=== PATIENT | female | born 1940 | race Caucasian/White ===

== ENCOUNTER → 2019-05-05 | Outpatient (CLI) | payer MEDICARE ==
--- NOTE | 2019-05-05 12:38 | REP ---
Chest two views HISTORY: Cough Parenchymal densities are present in the right lower lobe consistent with atelectasis or infiltrate. The left lung is clear. The heart is normal in size. The pulmonary vasculature is normal in appearance. The bony structure is intact. IMPRESSION: Right lower lobe atelectasis or infiltrate. Electronically Signed by Giovanni Clayton MD 05/05/2019 12:30 P
== END ==
LOC: M SMT 11:43
PROVIDERS: ATTEND Internal Medicine Pulmonary Disease
DX: R91.8 Other nonspecific abnormal finding of lung field (principal)

== ENCOUNTER → 2019-05-26 | Outpatient (REF) | payer MEDICARE | LOC: M LAB REF 12:57 | PROVIDERS: ATTEND Internal Medicine Pulmonary Disease | DX: R05 Cough (principal) ==

== ENCOUNTER → 2022-09-10 | Outpatient (REF) | payer MEDICARE ==
[2022-09-10 18:31] LABS: BASO # 0.2 10^3/uL (0.0-0.2); BASO % 1.5 % (0.0-1.0); EOS # 1.3 10^3/uL (0.0-0.5); EOS % 11.9 % (0.0-3.0); HEMATOCRIT 48.4 % (36.0-47.0); HEMOGLOBIN 15.7 g/dl (12.0-15.5); LYMPH # 2.4 10^3/uL (1.5-5.0); LYMPH % 21.6 % (24.0-44.0); MEAN CORPUSCULAR HEMOGLOBIN 30.8 pg (27.0-33.0); MEAN CORPUSCULAR HGB CONC 32.4 g/dl (32.0-36.5); MEAN CORPUSCULAR VOLUME 95.1 fl (80.0-96.0); MONO # 1.3 10^3/uL (0.0-0.8); MONO % 11.6 % (2.0-8.0); NEUTROPHILS # 5.9 10^3/uL (1.5-8.5); NEUTROPHILS % 53.2 % (36.0-66.0); PLATELET COUNT, AUTOMATED 373 10^3/uL (150-450); RED BLOOD COUNT 5.09 10^6/uL (4.00-5.40)
[2022-09-23 15:07] LABS: D001-IgE D pteronyssinus <0.10 kU/L (Class 0); E001-IgE Cat Epith/Dander < 0.10 kU/L (Class 0); E005-IgE Dog Dander < 0.10 kU/L (Class 0); G002-IgE Bermuda Grass < 0.10 kU/L (Class 0); M002 IgE Cladosporium herbaru < 0.10 kU/L (Class 0); M006-IgE Alternaria alternata < 0.10 kU/L (Class 0); W001-IgE Ragweed, Short < 0.10 kU/L (Class 0)
== END ==
LOC: M LAB 14:11 → M LAB REF 14:11 → M LAB 17:29
PROVIDERS: ATTEND Nurse Practitioner Family
DX: J45.40 Moderate persistent asthma, uncomplicated (principal)

== ENCOUNTER → 2022-09-26 | Outpatient (REF) | payer MEDICARE | LOC: M LAB REF 10:03 | PROVIDERS: ATTEND Nurse Practitioner Family | DX: J45.40 Moderate persistent asthma, uncomplicated (principal) ==

== ENCOUNTER → 2022-10-15 | Outpatient (REF) | payer MEDICARE ==
[2022-10-15 18:36] LABS: BASO # 0.2 10^3/uL (0.0-0.2); BASO % 0.9 % (0.0-1.0); EOS # 0.7 10^3/uL (0.0-0.5); EOS % 4.3 % (0.0-3.0); HEMOGLOBIN 15.5 g/dl (12.0-15.5); LYMPH # 3.2 10^3/uL (1.5-5.0); LYMPH % 18.2 % (24.0-44.0); MEAN CORPUSCULAR HEMOGLOBIN 30.9 pg (27.0-33.0); MEAN CORPUSCULAR HGB CONC 32.3 g/dl (32.0-36.5); MEAN CORPUSCULAR VOLUME 95.6 fl (80.0-96.0); MONO % 13.3 % (2.0-8.0); NEUTROPHILS # 10.9 10^3/uL (1.5-8.5); NEUTROPHILS % 62.9 % (36.0-66.0); PLATELET COUNT, AUTOMATED 429 10^3/uL (150-450); RED BLOOD COUNT 5.02 10^6/uL (4.00-5.40); WHITE BLOOD COUNT 17.3 10^3/uL (4.0-10.0)
[2022-10-15 19:40] LABS: MONO # 2.3 10^3/uL (0.0-0.8)
== END ==
LOC: M LAB REF 17:06
PROVIDERS: ATTEND Nurse Practitioner Family
DX: J45.41 Moderate persistent asthma with (acute) exacerbation (principal)

== ENCOUNTER 2024-09-21 15:27 | Observation (INO) | payer MEDICARE ==
[~2024-09-21] VITALS: Ht 157.5 cm; Wt 90.0 kg
[~2024-09-21 15:27] MED LIST changes: -AZEL1SPR3 NARES; -ELIQ5TAB PO; -IBUP200C25 PO; -LANO125T4 PO; -METO1TAB87 PO
[2024-09-21] MEDS: METOPROLOL TART 25 MG TABLET PO ONE (16:02)
[2024-09-21] MEDS: METOPROLOL 5 MG/5 ML VIAL IV SCH (16:02)
[2024-09-21 16:12] LABS: BASO # 0.2 10^3/uL (0.0-0.2); BASO % 1.5 % (0.0-1.0); EOS # 1.1 10^3/uL (0.0-0.5); EOS % 9.7 % (0.0-3.0); HEMATOCRIT 49.1 % (36.0-47.0); HEMOGLOBIN 16.4 g/dl (12.0-15.5); LYMPH # 3.4 10^3/uL (1.5-5.0); LYMPH % 29.3 % (24.0-44.0); MEAN CORPUSCULAR HEMOGLOBIN 31.1 pg (27.0-33.0); MEAN CORPUSCULAR HGB CONC 33.4 g/dl (32.0-36.5); MEAN CORPUSCULAR VOLUME 93.2 fl (80.0-96.0); MONO # 1.4 10^3/uL (0.0-0.8); MONO % 12.3 % (2.0-8.0); NEUTROPHILS # 5.4 10^3/uL (1.5-8.5); NEUTROPHILS % 46.9 % (36.0-66.0); PLATELET COUNT, AUTOMATED 429 10^3/uL (150-450); RED BLOOD COUNT 5.27 10^6/uL (4.00-5.40); WHITE BLOOD COUNT 11.6 10^3/uL (4.0-10.0)
[2024-09-21 16:21] VITALS: BP 123/101
[2024-09-21 16:21] LABS: ALKALINE PHOSPHATASE 152 U/L (46-116); ALT/SGPT 25 U/L (7.0-40); AST/SGOT 25 U/L (<34); BILIRUBIN,DIRECT 0.1 MG/DL (<0.4); BILIRUBIN,TOTAL 0.4 MG/DL (0.3-1.2); BLOOD UREA NITROGEN 18 MG/DL (9-23); CALCIUM LEVEL 10.2 MG/DL (8.3-10.6); CARBON DIOXIDE LEVEL 22 MMOL/L (20-31); CHLORIDE LEVEL 110 MMOL/L (98-107); CREATININE FOR GFR 0.81 MG/DL (0.55-1.30); GLOMERULAR FILTRATION RATE > 60.0 (>32); GLUCOSE, FASTING 111 MG/DL (74-106); POTASSIUM SERUM 4.7 MMOL/L (3.5-5.1); SODIUM LEVEL 142 MMOL/L (136-145); TOTAL PROTEIN 7.7 G/DL (5.7-8.2)
[2024-09-21 16:23] LABS: INR 0.98; PARTIAL THROMBOPLASTIN TIME 28.2 SECONDS (24.8-34.2); PROTHROMBIN TIME 12.7 SECONDS (12.5-14.5)
[2024-09-21 16:24] LABS: THYROID STIMULATING HORMONE 4.366 uIU/ML (0.55-4.78); THYROXINE (T4) 10.1 UG/DL (4.5-10.9)
[2024-09-21] MEDS ORDERED: ISOVUE-370 76% 100ML VIAL As Ordered ONE (17:28)
[2024-09-21] MEDS ORDERED: AZEL1SPR3 NARES (17:43)
[2024-09-21] MEDS ORDERED: IBUP200C25 PO (17:43)
[2024-09-21] MEDS ORDERED: HOME MED LIST COMPLETE! XX SCH (17:45)
[2024-09-21] MEDS: DIGOXIN INJ 0.5 MG/2 ML AMP IV ONE (18:30)
[2024-09-21] MEDS: BUDESONIDE 0.5 MG/2 ML INHALATION SUSPENSION INH SCH (20:00)
[2024-09-21] MEDS: SYMBICORT 160/4.5MCG INHALER 6GM INH SCH (20:00)
[2024-09-21] MEDS ORDERED: LEVALBUTEROL 1.25MG 0.5ML CONCENTRATE NEB INH PRN (20:15)
[2024-09-21] MEDS: AZELASTINE 137MCG NASAL SPY 30 ML (ASTELIN) SCH (21:00)
[2024-09-21] MEDS ORDERED: diltiaZEM 125 MG in NS 100 ML IV SCH (21:00)
[2024-09-21 21:47] VITALS: BP 143/93; TEMP 97.1; O2SAT 94
[2024-09-21] MEDS: APIXABAN 5 MG TAB (ELIQUIS) PO SCH (23:03)
[2024-09-21 23:48] VITALS: BP 130/74; TEMP 97.3; O2SAT 94
[2024-09-22 03:57] VITALS: BP 130/60; TEMP 97.1; O2SAT 93
[2024-09-22 05:22] LABS: BASO # 0.2 10^3/uL (0.0-0.2); BASO % 1.6 % (0.0-1.0); EOS # 1.1 10^3/uL (0.0-0.5); EOS % 10.9 % (0.0-3.0); HEMATOCRIT 43.5 % (36.0-47.0); HEMOGLOBIN 14.7 g/dl (12.0-15.5); LYMPH # 2.5 10^3/uL (1.5-5.0); LYMPH % 26.1 % (24.0-44.0); MEAN CORPUSCULAR HGB CONC 33.8 g/dl (32.0-36.5); MEAN CORPUSCULAR VOLUME 94.8 fl (80.0-96.0); MONO # 1.1 10^3/uL (0.0-0.8); MONO % 11.1 % (2.0-8.0); NEUTROPHILS # 4.9 10^3/uL (1.5-8.5); PLATELET COUNT, AUTOMATED 350 10^3/uL (150-450); RED BLOOD COUNT 4.59 10^6/uL (4.00-5.40); WHITE BLOOD COUNT 9.7 10^3/uL (4.0-10.0)
[2024-09-22 05:49] LABS: BLOOD UREA NITROGEN 15 MG/DL (9-23); CALCIUM LEVEL 9.5 MG/DL (8.3-10.6); CARBON DIOXIDE LEVEL 26 MMOL/L (20-31); CHLORIDE LEVEL 109 MMOL/L (98-107); CREATININE FOR GFR 0.87 MG/DL (0.55-1.30); GLOMERULAR FILTRATION RATE > 60.0 (>32); GLUCOSE, FASTING 110 MG/DL (74-106); POTASSIUM SERUM 4.2 MMOL/L (3.5-5.1); SODIUM LEVEL 140 MMOL/L (136-145)
[2024-09-22 07:50] VITALS: BP 154/70; TEMP 98; O2SAT 93
[2024-09-22] MEDS ORDERED: DIGOXIN 0.125 MG TAB PO SCH (09:00)
[2024-09-22] MEDS: METOPROLOL TART 25 MG TABLET PO SCH (09:05)
[2024-09-22] MEDS: MONTELUKAST 10 MG TAB PO SCH (09:05)
[2024-09-22] MEDS: TIOTROPIUM INHALER/CAPSULE (SPIRIVA) INH SCH (09:13)
[2024-09-22] MEDS ORDERED: ELIQ5TAB PO (10:59)
[2024-09-22] MEDS ORDERED: LANO125T4 PO (10:59)
[2024-09-22] MEDS ORDERED: METO1TAB87 PO (10:59)
[2024-09-22 13:07] LABS: HEMOGLOBIN A1c 5.2 % (4.0-6.0)
== END 2024-09-22 13:09 | disposition home or self-care (01) ==
LOC: M ED 15:27 → M ED INP 20:11 → M PCU 21:44
PROVIDERS: ADMIT Student in an Organized Health Care Education/Training Program; ATTEND Student in an Organized Health Care Education/Training Program
DX: I48.0 Paroxysmal atrial fibrillation (principal); J45.909 Unspecified asthma, uncomplicated; J47.9 Bronchiectasis, uncomplicated; R06.09 Other forms of dyspnea; K21.9 Gastro-esophageal reflux disease without esophagitis; M19.90 Unspecified osteoarthritis, unspecified site; R53.83 Other fatigue; R91.8 Other nonspecific abnormal finding of lung field; Z90.89 Acquired absence of other organs; Z98.41 Cataract extraction status, right eye; Z98.42 Cataract extraction status, left eye; Z98.890 Other specified postprocedural states; Z79.899 Other long term (current) drug therapy; Z79.51 Long term (current) use of inhaled steroids; Z88.0 Allergy status to penicillin; Z88.8 Allergy status to other drugs, medicaments and biological substances; J45.40 Moderate persistent asthma, uncomplicated
CPT/HCPCS: 36415; 71045; 71275; 80048; 80076; 80162; 83036; 83735; 83880; 84436; 84443; 85025; 85610; 85730; 87486; 87581; 87633; 87798; 93005; 93041; 93306; 94010; 94640; 94760; 96374; 96375; 97161; 99285; G0378; G0463; J1160; Q9967

== ENCOUNTER → 2024-09-21 | Outpatient (CLI) | payer MEDICARE ==
[~2024-09-21] MED LIST: ALBU2.5V10 INH; AZEL1SPR3 NARES; BUDE0.5S6 INH; ELIQ5TAB PO; FLUT1BLS8 INH; GLUC1TAB58 PO; IBUP200C25 PO; LANO125T4 PO; METO1TAB87 PO; MONT10TA97 PO; OMEP1CAP73 PO
== END ==
LOC: M EKG 14:36
PROVIDERS: ATTEND Internal Medicine Pulmonary Disease
DX: J45.40 Moderate persistent asthma, uncomplicated (principal)

== ENCOUNTER → 2024-09-22 | Outpatient (CLI) | payer MEDICARE ==
[~2024-09-22] MED LIST changes: +AZEL1SPR3 NARES; +ELIQ5TAB PO; +IBUP200C25 PO; +LANO125T4 PO; +METO1TAB87 PO
== END ==
LOC: M EKG 13:15
PROVIDERS: ATTEND Internal Medicine
DX: I48.0 Paroxysmal atrial fibrillation (principal)